=== PATIENT | female | born 1955 | race Caucasian/White ===

== ENCOUNTER 2016-05-25 12:17 | Emergency (ER) | payer SELFPAY ==
[~2016-05-25] VITALS: Wt 78.0 kg
[2016-05-25] MEDS ORDERED: D-ME473S18 PO (13:18)
[2016-05-25] MEDS ORDERED: BENZ100C70 PO (13:18)
--- NOTE | 2016-05-25 15:38 | ERD ---
DATE OF SERVICE: HISTORY OF PRESENT ILLNESS: Patient is a 60-year-old female complaining of cough for 2 weeks. The patient states it is a dry cough. She has been taking Robitussin with no alleviation. She states s he has a muscle pain from all her coughing, but does not have hemoptysis, no pleuritic chest pain. No cardiac chest pain, no radiating chest pain, no fevers, has no history of pneumonia in the past. No leg swelling. MEDICAL HISTORY: Diabetes, hypertension, hypercholesterolemia. ALLERGIES TO MEDICATIONS: Denies. SURGICAL HISTORY: Denies. SOCIAL HISTORY: Denies. REVIEW OF SYSTEMS: A 12-point review of systems was done. Refer to HPI for positives, all other sy stems negative. PHYSICAL EXAMINATION VITAL SIGNS: Temperature is 98.1, pulse 78, blood pressure is 151/74, respiratory 18, O2 sat 96% on room air. Pain intensity is 0/10. GENERAL: The patient is well-appearing, well-nourished, no acute distress. HEENT: Atraumatic. Conjunctivae are pink. Pupils equal, round, and reactive to light. There is no s cleral icterus. Tympanic membranes clear bilaterally. Oropharynx clear. No nystagmus or photophobia . CHEST: Clear to auscultation bilaterally. There are no rales, wheezes or rhonchi. HEART: Regular rate and rhythm. No murmurs, clicks, rubs or gallops. No S3 or S4. ABDOMEN: Soft, nontender and nondistended. Good bowel sounds. No rebound or guarding. No gross fay tonitis. No gross organomegaly or masses. No Love sign or McBurney point tenderness. BACK: No midline or flank tenderness. SKIN: There is no apparent rash or petechia. The skin is warm and dry. DIAGNOSIS: Cough, likely viral. MEDICAL DECISION MAKING: I have low suspicion for PE, low suspicion for pneumonia, low suspicion fo r cardiac emergency. Low suspicion for intrathoracic pulmonary emergency at this time. The patient 's symptoms are likely associated with viral etiology. Low suspicion for CHF. DISCHARGE: The patient is discharged stable. Patient is given prescription for promethazine and Te ssalon. Told to follow up with primary care within 1 to 2 days for reevaluation. The patient was t old if symptoms progress or worsen to return to the ER. All questions answered at time of discharge . Discharge summary given at the time of departure. Patient understood and complied with plan. Dictated By: FLOYD CARUSO for CECILIA ALCOCER/YONAS Conf#: [id number] DID#: [id number]
== END 2016-05-25 13:33 | disposition home or self-care (01) ==
LOC: FTE 12:17
DX: R05 Cough (principal); E11.9 Type 2 diabetes mellitus without complications; I10 Essential (primary) hypertension
CPT/HCPCS: 99284